=== PATIENT | female | born 1930 | race Caucasian/White ===

== ENCOUNTER 2018-09-12 14:27 | Emergency (ER) | payer MEDICARE, OTHER ==
[~2018-09-12] VITALS: Ht 162.6 cm; Wt 62.0 kg
[2018-09-12] MEDS ORDERED: DIPH,PERTUSS(ACELL),TET VAC/PF 0.5 ML IM-VACC ONE ×2 (15:00→16:08)
--- NOTE | 2018-09-12 15:53 | NUR ---
PT IN GOWN WITH SISTER AT BEDSIDE. TECH IN ROOM WITH PT TO CLEAN WOUND. PT DENIES ANY MEDICAL HX. NO WANTS OR NEEDS AT THIS TIME.
[2018-09-12] MEDS ORDERED: LIDOCAINE-MPF 1%, 5ML ONE (16:08)
[2018-09-12] MEDS ORDERED: LIDOCAINE-MPF 1%, 5ML INFIL ONE (16:30)
[2018-09-12 16:52] VITALS: BP 178/82
== END 2018-09-12 16:54 | disposition home or self-care (01) ==
LOC: ED 16:45
DX: S01.01XA Laceration without foreign body of scalp, initial encounter (principal); W10.9XXA Fall (on) (from) unspecified stairs and steps, initial encounter; Y93.01 Activity, walking, marching and hiking; Y92.009 Unspecified place in unspecified non-institutional (private) residence as the place of occurrence of the external cause; Y99.8 Other external cause status
CPT/HCPCS: 12031; 70450; 90471; 90715

== ENCOUNTER 2018-10-02 17:14 | Inpatient (IN) | payer OTHER ==
[~2018-10-02] VITALS: Ht 165.1 cm; Wt 65.9 kg
[2018-10-02] MEDS ORDERED: Aricept (17:34)
[2018-10-02] MEDS ORDERED: Zetia (17:34)
[2018-10-02] MEDS ORDERED: Namenda (17:34)
[2018-10-02] MEDS ORDERED: Vitamin D (17:34)
--- NOTE | 2018-10-02 17:39 | NUR ---
Pt presents to ED by EMS with c/o left sided chest pain that radiates across the chest to right side of chest. Pt took 625 of ASA at home that was in 2014, prior to arrival to ED. Pt has PMH of dementia and is AOX1 at baseline. NADN. Pt denies cp at this time, sob, n/v/d, diaphoresis, or syncope. Pt's twin sister and nephew at bedside. Pt connected to NIBP, continous pulse ox, and exercise science internship. EKG performed by endoscopy tech at bedside. Both bedrails up for safety measures. Call light within reach. No other needs expressed at this time.
[2018-10-02 18:16] LABS: BASOPHILS # (AUTO) 0.04 x10^3/uL (0-0.1); BASOPHILS % (AUTO) 1 % (0-1); EOSINOPHILS # (AUTO) 0.14 x10^3/uL (0-0.4); EOSINOPHILS % (AUTO) 2 % (1-7); LYMPHOCYTES # (AUTO) 0.75 x10^3/uL (1-3.4); LYMPHOCYTES % (AUTO) 9 % (22-44); MD NO; MEAN CORPUSCULAR HEMOGLOBIN 29.5 pg (27.0-34.8); MEAN CORPUSCULAR HGB CONC 32.5 g/dL (32.4-35.8); MEAN CORPUSCULAR VOLUME 90.7 fL (80-100); MEAN PLATELET VOLUME 9.3 fL (7.4-10.4); MONOCYTES # (AUTO) 1.05 x10^3/uL (0.2-0.8); MONOCYTES % (AUTO) 12 % (2-9); NEUTROPHILS # (AUTO) 6.54 x10^3/uL (1.8-6.8); NEUTROPHILS % (AUTO) 77 % (42-75); PLATELET COUNT 240 x10^3/uL (130-400); RED BLOOD COUNT 4.94 x10^6/uL (3.82-5.3); RED CELL DISTRIBUTION WIDTH 14.6 % (9.6-15.2)
[2018-10-02 18:24] LABS: ALBUMIN 3.8 g/dL (3.4-5.0); ANION GAP 6 mmol/L (5-15); CALCIUM 9.1 mg/dL (8.5-10.1); CHLORIDE 112 mmol/L (98-107); CREATININE 1.15 mg/dL (0.55-1.02)
[2018-10-02 18:28] LABS: TROPONIN I < 0.015 ng/mL (0.000-0.045)
[2018-10-02] MEDS ORDERED: ACETAMINOPHEN 325 MG TABLET PO PRN (19:00)
[2018-10-02] MEDS ORDERED: OXYcodone IR 5MG TABLET PO PRN (19:00)
[2018-10-02] MEDS ORDERED: ONDANSETRON 2MG/ML, 2ML IVPush PRN (19:00)
[2018-10-02] MEDS ORDERED: BISACODYL 10 MG SUPP PR PRN (19:00)
[2018-10-02] MEDS ORDERED: DOCUSATE 100 MG CAPSULE PO PRN (19:00)
[2018-10-02] MEDS ORDERED: ONDANSETRON ODT 4 MG PO PRN (19:00)
[2018-10-02] MEDS ORDERED: POLYETHYLENE GLYCOL 17 GM PACKET PO PRN (19:00)
[2018-10-02] MEDS ORDERED: hydrALAzine 20 MG/ML, 1ML IVPush PRN (19:00)
[2018-10-02] MEDS ORDERED: NITROGLYCERIN 0.4 MG BOTTLE (25 TABS) SL PRN (19:00)
[2018-10-02] MEDS ORDERED: PROMETHAZINE 25 MG/ML, 1ML IM PRN (19:00)
[2018-10-02] MEDS ORDERED: morphine SULFATE 10 MG/ML, 1ML IVPush PRN (19:00)
--- NOTE | 2018-10-02 19:05 | NUR ---
Provided bedside report to RADHA Jacinto. All questions answered. RADHA Jacinto to assume care of pt's at this time.
--- NOTE | 2018-10-02 19:09 | NUR ---
REPORT FROM YOHAN GARCIA. PIV TO BE PLACED BY ORTHOPEDIC TECHNICIAN STUDENT. ADMITTING MD AT BEDSIDE. CALL LIGHT IN REACH
--- NOTE | 2018-10-02 19:11 | NUR ---
TP RN: PT REFUSED FROM [facility]
[2018-10-02 20:07] LABS: FREE T4 (FREE THYROXINE) 1.17 ng/dL (0.76-1.46); THYROID STIMULATING HORMONE 4.26 mIU/L (0.358-3.740)
[2018-10-02 20:12] LABS: HEMOGLOBIN A1C 5.7 % (4.2-6.3)
[2018-10-02] MEDS ORDERED: EZET10TA18 PO (20:15)
[2018-10-02] MEDS ORDERED: CALC-55 PO (20:15)
[2018-10-02] MEDS ORDERED: DONE10TA56 PO (20:15)
--- NOTE | 2018-10-02 20:15 | NUR ---
MED REQ COMPLETE. REPORT TO DUC GARCIA
[2018-10-02] MEDS: HEPARIN 5,000 UNITS/ML, 1ML SQ SCH (21:04)
[2018-10-02] MEDS: LOSARTAN 25MG TABLET PO SCH (21:04)
[2018-10-02 21:06] VITALS: BP 175/70
[2018-10-02 21:27] LABS: CULTURE INDICATED? YES; MICROSCOPIC INDICATED
[2018-10-02 21:44] LABS: TROPONIN I < 0.015 ng/mL (0.000-0.045)
[2018-10-03] VITALS (7 sets, daily range): BP systolic 128–173; BP diastolic 72–85
[2018-10-03 01:16] LABS: TROPONIN I < 0.015 ng/mL (0.000-0.045)
[2018-10-03 05:31] LABS: BASOPHILS # (AUTO) 0.03 x10^3/uL (0-0.1); BASOPHILS % (AUTO) 1 % (0-1); EOSINOPHILS % (AUTO) 4 % (1-7); LYMPHOCYTES # (AUTO) 0.97 x10^3/uL (1-3.4); LYMPHOCYTES % (AUTO) 20 % (22-44); MD NO; MEAN CORPUSCULAR HEMOGLOBIN 29.8 pg (27.0-34.8); MEAN CORPUSCULAR VOLUME 90.3 fL (80-100); MEAN PLATELET VOLUME 9.2 fL (7.4-10.4); MONOCYTES # (AUTO) 0.69 x10^3/uL (0.2-0.8); MONOCYTES % (AUTO) 14 % (2-9); NEUTROPHILS # (AUTO) 2.97 x10^3/uL (1.8-6.8); NEUTROPHILS % (AUTO) 61 % (42-75); PLATELET COUNT 219 x10^3/uL (130-400); RED BLOOD COUNT 4.46 x10^6/uL (3.82-5.3); RED CELL DISTRIBUTION WIDTH 14.3 % (9.6-15.2)
[2018-10-03 05:36] LABS: ALANINE AMINOTRANSFERASE 114 U/L (12-78); ALBUMIN 3.6 g/dL (3.4-5.0); ANION GAP 8 mmol/L (5-15); CHLORIDE 112 mmol/L (98-107); CREATININE 1.04 mg/dL (0.55-1.02)
[2018-10-03] MEDS: HEPARIN 5,000 UNITS/ML, 1ML SQ SCH ×3 (05:43→21:05)
[2018-10-03] MEDS: ASPIRIN 325 MG TABLET EC PO SCH (05:43)
[2018-10-03 05:51] LABS: ALKALINE PHOSPHATASE 69 U/L (45-117); BILIRUBIN,TOTAL 0.4 mg/dL (0.2-1.0); CHOL/HDL RATIO 4.8; CHOLESTEROL, TOTAL 239 mg/dL (140-239); HDL CHOL % 21 % (28-40); HDL CHOLESTEROL (DIRECT) 50 mg/dL (40-60); LDL CHOLESTEROL,CALCULATED 169 mg/dL (54-169); LDL/HDL RATIO 3.4 (0.5-3.0); TOTAL PROTEIN 6.5 g/dL (6.4-8.2); TRIGLYCERIDES 98 mg/dL (50-200); VLDL CHOLESTEROL 20 mg/dL (0-25)
[2018-10-03] MEDS ORDERED: REGADENOSON 0.4 MG/5 ML SYRINGE ONE (09:02)
[2018-10-03] MEDS: CALCIUM/VITAMIN D3 250-125 TABLET PO SCH (09:18)
[2018-10-03] MEDS: EZETIMIBE 10 MG TABLET PO SCH (09:18)
[2018-10-03] MEDS ORDERED: BUPIVACAINE/EPI 0.5% 1:200K ONE (15:37)
[2018-10-03] MEDS ORDERED: FENTANYL PF 100 MCG/2ML ONE ×2 (16:22→17:53)
[2018-10-03] MEDS ORDERED: ONDANSETRON 2MG/ML, 2ML ONE (16:27)
[2018-10-03] MEDS ORDERED: LIDOCAINE PF 2%, 5ML ONE (16:27)
[2018-10-03] MEDS ORDERED: CEFOTETAN PMX 1GM/50ML 50 ML ONE (17:03)
[2018-10-03] MEDS ORDERED: PROPOFOL 10 MG/ML, 20ML ONE (17:03)
[2018-10-03] MEDS ORDERED: SUGAMMADEX 200 MG/2 ML IVPush ONE (17:03)
[2018-10-03] MEDS ORDERED: ROCURONIUM 10MG/ML,5ML ONE (17:03)
[2018-10-03] MEDS ORDERED: hydrALAzine 20 MG/ML, 1ML ONE (17:14)
[2018-10-03] MEDS ORDERED: OXYcodone 5 MG/5 ML ORAL.SOL UDC ONE (17:54)
[2018-10-03] MEDS ORDERED: ONDANSETRON 2MG/ML, 2ML IV PRN ×2 (18:00→19:00)
[2018-10-03] MEDS ORDERED: FENTANYL PF 100 MCG/2ML IV PRN (18:00)
[2018-10-03] MEDS ORDERED: OXYcodone 5 MG/5 ML ORAL.SOL UDC PO PRN (18:00)
[2018-10-03] MEDS ORDERED: ACETAMINOPHEN 325 MG TABLET PO PRN (18:00)
[2018-10-03] MEDS ORDERED: morphine SULFATE 10 MG/ML, 1ML IV PRN (19:00)
[2018-10-03] MEDS ORDERED: OXYcodone IR 5MG TABLET PO PRN (19:00)
[2018-10-03] MEDS: LOSARTAN 25MG TABLET PO SCH (21:05)
[2018-10-03] MEDS: DONEPEZIL 10 MG TABLET PO SCH (21:05)
[2018-10-03] MEDS: ACETAMINOPHEN 500 MG TABLET PO SCH (21:05)
[2018-10-03] MEDS: LACTATED RINGERS 1,000 ML IV SCH (21:06)
[2018-10-03] MEDS: CEFTRIAXONE PMX 1GM/50ML 50 ML IV SCH (21:06)
[2018-10-04 01:06] VITALS: BP 140/78
[2018-10-04 05:21] LABS: BASOPHILS # (AUTO) 0.01 x10^3/uL (0-0.1); BASOPHILS % (AUTO) 0 % (0-1); EOSINOPHILS # (AUTO) 0.01 x10^3/uL (0-0.4); EOSINOPHILS % (AUTO) 0 % (1-7); LYMPHOCYTES # (AUTO) 0.51 x10^3/uL (1-3.4); LYMPHOCYTES % (AUTO) 6 % (22-44); MD NO; MEAN CORPUSCULAR HEMOGLOBIN 29.3 pg (27.0-34.8); MEAN CORPUSCULAR HGB CONC 32.4 g/dL (32.4-35.8); MEAN CORPUSCULAR VOLUME 90.5 fL (80-100); MEAN PLATELET VOLUME 9.6 fL (7.4-10.4); MONOCYTES # (AUTO) 0.77 x10^3/uL (0.2-0.8); MONOCYTES % (AUTO) 9 % (2-9); NEUTROPHILS # (AUTO) 7.26 x10^3/uL (1.8-6.8); NEUTROPHILS % (AUTO) 85 % (42-75); PLATELET COUNT 228 x10^3/uL (130-400); RED BLOOD COUNT 4.79 x10^6/uL (3.82-5.3)
[2018-10-04 05:29] LABS: CHLORIDE 109 mmol/L (98-107)
[2018-10-04 05:33] LABS: ANION GAP 11 mmol/L (5-15); CALCIUM 8.5 mg/dL (8.5-10.1); CREATININE 1.01 mg/dL (0.55-1.02)
[2018-10-04] MEDS: HEPARIN 5,000 UNITS/ML, 1ML SQ SCH ×3 (05:52→19:29)
[2018-10-04] MEDS: ACETAMINOPHEN 500 MG TABLET PO SCH ×3 (05:53→19:30)
[2018-10-04] MEDS: ASPIRIN 325 MG TABLET EC PO SCH (05:53)
[2018-10-04 07:01] VITALS: BP_SYST 131; BP_SYST 137; BP_DIAS 75; BP_DIAS 77
[2018-10-04] MEDS: EZETIMIBE 10 MG TABLET PO SCH (08:19)
[2018-10-04] MEDS: CALCIUM/VITAMIN D3 250-125 TABLET PO SCH (08:19)
[2018-10-04] MEDS ORDERED: OMNIPAQUE 350 MG/ML, 100ML BOTTLE ONE (08:45)
[2018-10-04 14:03] VITALS: BP 133/65
[2018-10-04] MEDS: LACTATED RINGERS 1,000 ML IV SCH (15:08)
[2018-10-04 19:09] VITALS: BP 130/75
[2018-10-04] MEDS: DONEPEZIL 10 MG TABLET PO SCH (19:30)
[2018-10-04] MEDS: LOSARTAN 25MG TABLET PO SCH (19:30)
[2018-10-04] MEDS: CEFTRIAXONE PMX 1GM/50ML 50 ML IV SCH (20:42)
[2018-10-05 01:19] VITALS: BP 149/64
[2018-10-05] MEDS: ACETAMINOPHEN 500 MG TABLET PO SCH ×3 (04:14→20:11)
[2018-10-05] MEDS: ASPIRIN 325 MG TABLET EC PO SCH (04:15)
[2018-10-05] MEDS: HEPARIN 5,000 UNITS/ML, 1ML SQ SCH ×3 (04:15→20:11)
[2018-10-05 06:45] VITALS: BP 148/70
[2018-10-05] MEDS: CALCIUM/VITAMIN D3 250-125 TABLET PO SCH (07:26)
[2018-10-05] MEDS: EZETIMIBE 10 MG TABLET PO SCH (07:27)
[2018-10-05] MEDS ORDERED: LIDOCAINE-MPF 1%, 5ML ONE (08:56)
[2018-10-05] MEDS ORDERED: FENTANYL PF 100 MCG/2ML ONE ×2 (09:16→09:17)
[2018-10-05] MEDS ORDERED: FLUMAZENIL 0.1 MG/1 ML, 5ML ONE (09:17)
[2018-10-05] MEDS ORDERED: MIDAZOLAM 1 MG/ML, 5ML ONE (09:17)
[2018-10-05] MEDS ORDERED: NALOXONE 1 MG/ML, 2ML ONE (09:17)
[2018-10-05] MEDS: LACTATED RINGERS 1,000 ML IV SCH ×2 (11:00→17:42)
[2018-10-05 12:18] VITALS: BP 145/75
[2018-10-05 18:33] VITALS: BP 129/76
[2018-10-05] MEDS: LOSARTAN 25MG TABLET PO SCH (20:11)
[2018-10-05] MEDS: CEPHALEXIN 500 MG CAPSULE PO SCH (20:11)
[2018-10-05] MEDS: DONEPEZIL 10 MG TABLET PO SCH (20:11)
[2018-10-06 00:46] VITALS: BP 157/83
[2018-10-06] MEDS: HEPARIN 5,000 UNITS/ML, 1ML SQ SCH (05:16)
[2018-10-06] MEDS: ACETAMINOPHEN 500 MG TABLET PO SCH (05:16)
[2018-10-06] MEDS: ASPIRIN 325 MG TABLET EC PO SCH (05:17)
[2018-10-06 06:39] VITALS: BP 157/74
[2018-10-06] MEDS: CEPHALEXIN 500 MG CAPSULE PO SCH (08:53)
[2018-10-06] MEDS: CALCIUM/VITAMIN D3 250-125 TABLET PO SCH (08:53)
[2018-10-06] MEDS: EZETIMIBE 10 MG TABLET PO SCH (08:53)
[2018-10-06] MEDS ORDERED: POLY17PO5 PO (11:22)
[2018-10-06] MEDS ORDERED: LOSA25TA25 PO (11:22)
[2018-10-06] MEDS ORDERED: CEPH-376 PO (11:22)
== END 2018-10-06 13:02 | disposition home or self-care (01) | DRG 674 ==
LOC: ED 18:24 → EDIP 18:48 → 5SO 20:42 → 3NW 10-04 18:25 → DCLOUNGE 10-06 12:48
PROVIDERS: ADMIT Internal Medicine; ATTEND Internal Medicine
PROC: 0FT44ZZ Resection of Gallbladder, Percutaneous Endoscopic Approach (ICD-10-PCS; principal; 2018-10-03 16:30)
PROC: 0Q923ZX Drainage of Right Pelvic Bone, Percutaneous Approach, Diagnostic (ICD-10-PCS; 2018-10-05)
DX: C64.2 Malignant neoplasm of left kidney, except renal pelvis (principal); K80.00 Calculus of gallbladder with acute cholecystitis without obstruction; C79.51 Secondary malignant neoplasm of bone; N39.0 Urinary tract infection, site not specified; B96.20 Unspecified Escherichia coli [E. coli] as the cause of diseases classified elsewhere; E78.5 Hyperlipidemia, unspecified; F03.90 Unspecified dementia, unspecified severity, without behavioral disturbance, psychotic disturbance, mood disturbance, and anxiety; I10 Essential (primary) hypertension; D71 Functional disorders of polymorphonuclear neutrophils; Z90.710 Acquired absence of both cervix and uterus; Z90.49 Acquired absence of other specified parts of digestive tract
CPT/HCPCS: 20225; 36415; 71045; 71260; 74177; 76700; 77012; 78452; 80048; 80053; 80061; 81001; 82040; 83036; 83735; 84439; 84443; 84484; 85025; 85060; 85097; 87077; 87086; 87186; 88237; 88264; 88280; 88304; 88305; 88311; 88313; 88341; 88342; 93005; 93017; 93306; 99156; 99157; 99285; G0378; J0696; J1644; J2250; J2405; J2704; J2785; J3010; Q9967; A9502; C9898; J0360; J2310; J3490; J7120